=== PATIENT | male | born 1965 ===

== ENCOUNTER 2018-08-28 11:48 | Day surgery (SDC) | payer BC ==
[~2018-08-28] VITALS: Ht 185.4 cm; Wt 90.7 kg
[~2018-08-28 11:48] MED LIST: ENOX40I SC; HYDACE5 PO; HYDR1TAB94 PO; NAPR220 PO; RXHYDACE PO; WARF7.5 PO
--- NOTE | 2018-08-28 16:41 | NUR ---
8541 Patient up to Ambulate independently. Gait steady. MIN WT BEARING RIGHT, SPLINT IN PLACE, PAIN WITH MOVEMENT, STANDBY ASSIST TO XFER TO WC WITH RN HOLDING RLE. Discharge instructions reviewed with patient. Patient verbalizes understanding. Copy given to patient to take home. Patient States Post-Procedure ride home has been arranged. Discharged via wheelchair to private car for ride home.
--- NOTE | 2018-08-29 07:00 | NUR ---
08/29/18 0700 Roosevelt Whalen CHART EDITED.
== END 2018-08-28 22:48 | disposition home or self-care (01) ==
LOC: ORSCMMR 11:48 → ORD 13:30 → ORSCMMR 22:48
PROVIDERS: Orthopaedic Surgery
PROC: 0QSD04Z Reposition Right Patella with Internal Fixation Device, Open Approach (ICD-10-PCS; principal; 2018-08-28 13:30)
DX: S82.001K Unspecified fracture of right patella, subsequent encounter for closed fracture with nonunion (principal)
CPT/HCPCS: C1713; J0690; J1100; J1885; J2250; J2405; J2704; J3010; J7120

== ENCOUNTER 2020-10-28 06:50 | Day surgery (SDC) | payer BC ==
[~2020-10-28] VITALS: Ht 185.4 cm; Wt 95.2 kg
== END 2020-10-28 09:17 | disposition home or self-care (01) ==
LOC: ORSCSDS 06:50
PROVIDERS: Internal Medicine Gastroenterology
PROC: 0DBM8ZX Excision of Descending Colon, Via Natural or Artificial Opening Endoscopic, Diagnostic (ICD-10-PCS; principal; 2020-10-28 08:00)
PROC: 0DBK8ZX Excision of Ascending Colon, Via Natural or Artificial Opening Endoscopic, Diagnostic (ICD-10-PCS; principal; 2020-10-28 08:00)
PROC: 0DBL8ZX Excision of Transverse Colon, Via Natural or Artificial Opening Endoscopic, Diagnostic (ICD-10-PCS; principal; 2020-10-28 08:00)
DX: Z12.11 Encounter for screening for malignant neoplasm of colon (principal); D12.4 Benign neoplasm of descending colon; D12.2 Benign neoplasm of ascending colon; D12.3 Benign neoplasm of transverse colon; K64.8 Other hemorrhoids; Z86.718 Personal history of other venous thrombosis and embolism
CPT/HCPCS: 88305; J2704; J7120